=== PATIENT | female | born 2000 | race Caucasian/White ===

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

== ENCOUNTER 2022-10-13 17:01 | Outpatient (CLI) | payer OTHER, SELFPAY ==
--- NOTE | ~2022-10-13 | XR_ITS ---
XR chest 2V DATE: 10/13/2022 17:22 INDICATION: Chest pain TECHNIQUE: PA and lateral views COMPARISON: None FINDINGS: Normal heart size. No hilar or mediastinal enlargement. No pulmonary infiltrate or consolid ation, pleural effusion or pulmonary vascular congestion or pneumothorax. Included skeletal structures appear normal. IMPRESSION: Negative Reviewed, dictated and finalized at location A. HEALTH REGISTERED NURSE IMPRESSION: Negative
[2022-10-13 17:28] LABS: Hematocrit 39.7 % (37.0-47.0); Hemoglobin 13.4 g/dL (12.0-15.0); Mean Corpuscular HGB Conc 33.8 g/dl (32-36); Mean Corpuscular Hemoglobin 29.8 pg (26-34); Mean Corpuscular Volume 88.2 fl (80-100); Mean Platelet Volume 8.2 fl (7.4-10.4); Platelet Count Result 355 k/mm3 (150-375); Red Cell Distribution Width 12.5 % (11.5-14.5)
[2022-10-13 17:42] LABS: Alanine Aminotransferase 17 U/L (6-35); Albumin Level 4.6 g/dL (3.5-5.1); Alkaline Phosphatase 45 U/L (38-126); Anion Gap 7 mmol/L (8-16); Aspartate Amino Transferase 24 U/L (14-36); Bilirubin,Total 0.7 mg/dL (0.2-1.3); Blood Urea Nitrogen 11 mg/dL (7-17); Calcium 8.9 mg/dL (8.4-10.2); Carbon Dioxide 23 mmol/L (22-30); Chloride 110 mmol/L (98-107); Estimated Glomerular Filt Rate > 60; Glucose 83 mg/dL (65-110); Potassium 3.7 mmol/L (3.4-5.0); Sodium 140 mmol/L (137-145)
[2022-10-13 18:48] LABS: Folic Acid 10.8 ng/mL (2.76->20)
[2022-10-13 19:25] LABS: Vitamin D 25 Hydroxy 45.3 ng/mL
[2022-10-13 19:38] LABS: Thyroid Stimulating Hormone Reflex 0.972 uIU/mL (0.465-4.68)
== END 2022-10-13 17:02 | disposition home or self-care (01) ==
LOC: ANHLAB 17:04
PROVIDERS: PCP Family Medicine; Visit Provider Physician Assistant Medical
DX: D64.9 Anemia, unspecified (principal); F41.9 Anxiety disorder, unspecified; E78.2 Mixed hyperlipidemia; R53.83 Other fatigue; E55.9 Vitamin D deficiency, unspecified; R07.9 Chest pain, unspecified
CPT/HCPCS: 36415; 71046; 80053; 82306; 82607; 82746; 84443; 85027

== ENCOUNTER 2022-10-14 13:38 | Outpatient (CLI) | payer OTHER, SELFPAY ==
--- NOTE | 2022-10-14 13:49 | ECG_ITS ---
Measurements Intervals [place] Rate: 91 P: 69 MO: 151 QRS: 85 QRSD: 80 T: 50 QT: 340 QTc: 420 Interpretive Statements SINUS RHYTHM NO PREVIOUS ECG AVAILABLE FOR COMPARISON Electronically Signed On 10-14-2022 18:03:09 [employer] by Sophie Lopez M.D.
== END 2022-10-14 13:39 | disposition home or self-care (01) ==
LOC: ANHCARD 13:40
PROVIDERS: PCP Family Medicine; Visit Provider Physician Assistant Medical
DX: R07.9 Chest pain, unspecified (principal)
CPT/HCPCS: 93005

== ENCOUNTER 2023-01-25 17:14 | Outpatient (CLI) | payer OTHER, SELFPAY ==
--- NOTE | ~2023-01-25 | XR_ITS ---
EXAMINATION: XR lumbar spine bending only INDICATION: Low back pain TECHNIQUE: Lateral views of the lumbar spine in flexion and extension are noted. COMPARISON: None available FINDINGS: Bone alignment is normal. There is no fracture. No hypermobility is present with flexion or extension. The vertebral body heights and intervertebral disc spaces are maintained. IMPRESSION: 1. No acute osseous abnormality. Reviewed, dictated and finalized at location L.
[2023-01-25 18:23] LABS: Basophils Absolute Auto 0.1 K/mm3 (0.0-0.1); Basophils Percent Auto 1.5 % (0.2-1.2); Hematocrit 41.4 % (37.0-47.0); Hemoglobin 13.7 g/dL (12.0-15.0); Immature Granulocyte Absolute 0.02 K/mm3 (0.00-0.031); Immature Granulocyte Percent A 0.3 % (0-0.5); Lymphocytes Absolute Auto 2.94 K/mm3 (0.9-3.2); Lymphocytes Percent Auto 37.2 % (18.3-44.2); Mean Corpuscular HGB Conc 33.1 g/dl (32-36); Mean Corpuscular Hemoglobin 29.8 pg (26-34); Mean Platelet Volume 8.6 fl (7.4-10.4); Monocytes Absolute Auto 0.6 K/mm3 (0.1-0.6); Monocytes Percent Auto 7.1 % (2.6-8.5); Neutrophils Absolute Auto 4.3 K/mm3 (1.3-6.7); Neutrophils Percent Auto 53.9 % (45.5-73.1); Platelet Count Result 297 k/mm3 (150-375); Red Cell Distribution Width 12.3 % (11.5-14.5); White Blood Count 7.9 K/mm3 (4.5-10.0)
[2023-01-25 18:33] LABS: Alanine Aminotransferase 16 U/L (6-35); Albumin Level 4.7 g/dL (3.5-5.1); Alkaline Phosphatase 52 U/L (38-126); Anion Gap 8 mmol/L (8-16); Aspartate Amino Transferase 25 U/L (14-36); Bilirubin,Total 0.8 mg/dL (0.2-1.3); Blood Urea Nitrogen 10 mg/dL (7-17); Calcium 9.3 mg/dL (8.4-10.2); Carbon Dioxide 25 mmol/L (22-30); Chloride 104 mmol/L (98-107); Estimated Glomerular Filt Rate > 60; Glucose 89 mg/dL (65-110); Potassium 3.9 mmol/L (3.4-5.0); Sodium 137 mmol/L (137-145)
[2023-01-25 18:35] LABS: Rheumatoid Factor < 8.6 IU/ML (<12)
[2023-01-25 19:12] LABS: Vitamin D 25 Hydroxy 47.4 ng/mL
[2023-01-25 19:15] LABS: Erythrocyte Sedimentation Rate 5 mm/hr (0-20)
[2023-01-28 12:04] LABS: Anti Cyclic Citrullinated Pept <16 Units (<20)
== END 2023-01-25 17:15 | disposition home or self-care (01) ==
LOC: ANHLAB 17:15
PROVIDERS: PCP Family Medicine; Visit Provider Physician Assistant Medical
DX: M54.50 Low back pain, unspecified (principal); M25.50 Pain in unspecified joint; E53.8 Deficiency of other specified B group vitamins; E55.9 Vitamin D deficiency, unspecified
CPT/HCPCS: 36415; 72120; 80053; 82306; 82607; 85025; 85652; 86038; 86200; 86430

== ENCOUNTER 2023-02-23 12:50 | Outpatient (CLI) | payer OTHER, SELFPAY | END 2023-02-23 12:51 | disposition home or self-care (01) | LOC: ANHLAB 12:53 | PROVIDERS: PCP Family Medicine; Visit Provider Physician Assistant Medical | DX: E53.8 Deficiency of other specified B group vitamins (principal) | CPT/HCPCS: 36415; 82607 ==

== ENCOUNTER 2023-10-12 14:00 | Outpatient (RCR) | payer OTHER, SELFPAY ==
--- NOTE | 2023-09-14 14:06 | OPREHPOC ---
Outpatient Therapy Plan of Care This is a Multidisciplinary Plan of Care that may contain components documented by all disciplines (PT, OT, and ST.) PT Problem 1 PT Problem #1 Knowledge Deficit PT Goal 1 Goal Pt to be IND with issued Target Visit 8 PT Problem 2 PT Problem #2 Pain PT Goal 1 Goal Pt to report back pain no greater than 3/10 in the last week Target Visit 8 PT Goal 2 Goal Pt to report 75% improvement in overall symptoms. Target Visit 8 PT Problem 3 PT Problem #3 Pain PT Goal 1 Goal Pt to be able to stand for a full day of work without any pain. Target Visit 4 PT Problem 4 PT Problem #4 Impaired Range of Motion PT Goal 1 Goal Pt to demonstrate equal pelvis alignment at re- eval. Target Visit 4
--- NOTE | 2023-09-14 14:06 | PTOPEVAL1 ---
Assessment and note entered by Cortez Szymanski, PT, DPT Evaluation Information Assessment Status Evaluation Diagnosis back pain with radiculopathy Onset 6 month Subjective Information Pt reports lower back pain with L leg pain. She states her back pain she really only feels at night when she is laying down, she states her L leg bothers her more throughout the day. The back/ leg pain has been going on for about 6 months. 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 Reported Pain Level Pain Score 0: Self Report Assessment PT Clinical Summary Bonita presents to therapy today for her initial evaluation with a diagnosis of low back pain. Today she demonstrates pelvic asymmetry in supine. She declines any tenderness to palpation and has a negative slump test. She has hypermobility in her spine and BLE. Skilled therapy services are indicated to improve core/pelvis strength and stability, to limit pain, and to return to PLOF without limitations. Plan of Care Interventions Electrical Stimulation,Gait Training,Hot Pack/Cold Pack,Manual Therapy,Neuro Re-education,Patient/ Caregiver Educati,Therapeutic Activities, Therapeutic Exercise PT Services Indicated Yes Treatment Frequency and 1x/wk for 4 visits Duration These treatments will address the objective and functional deficits as defined above. The patient will be advanced safely and appropriately in order for the patient to progress towards his/her prior level of function. Additional exercises will be introduced and as well as a comprehensive home exercise program upon discharge, if needed, ?to ensure carryover of functional gains achieved in the clinic. This treatment plan has been reviewed and agreement upon by the patient.
--- NOTE | 2023-10-12 14:52 | PTOPDC ---
Assessment and note entered by Cortez Szymanski, PT, DPT Evaluation Information Assessment Status Discharge Diagnosis back pain with radiculopathy Onset 6 month Subjective Information Pt states she was doing really well for about a week or so. She states she is having a bit of pain today. She states she does think it is from the way she sleeps. Reported Pain Level Pain Score 5: Self Report Assessment PT Clinical Summary Bonita presents to therapy today for her progress report following 4 visits of skilled thereat to treat her low back pain. Overall she has progressed well with therapy, her standing and sitting tolerance have both improved. She states she slept wrong last night and was a bit sore. Pain decreased after HEP was performed. Pt states she does not need to continue with therapy, she feels she has the tools to treat herself on days she has pain. She will be discharged at this time.
== END 2023-10-12 16:04 | disposition home or self-care (01) ==
LOC: ANHGOSHPT 14:00
PROVIDERS: PCP Internal Medicine; Visit Provider Clinical Nurse Specialist
DX: M54.50 Low back pain, unspecified (principal); M79.605 Pain in left leg
CPT/HCPCS: 97014; 97110; 97161; 97530; G0283

== ENCOUNTER 2023-10-31 12:24 | Emergency (ER) | payer BC, SELFPAY ==
[2023-10-31 12:31] VITALS: BP 113/79; PULSE 91; RESP 20; TEMP 36.8; O2SAT 99
--- NOTE | 2023-10-31 13:42 | ED.GENADULT ---
HPI - General Adult General Chief complaint: Back Pain/Injury Stated complaint: SCIATICA Source: patient and family Mode of arrival: ambulatory Limitations: no limitations History of Present Illness HPI narrative: Patient presents for evaluation left sciatic nerve pain. She has been attending PT to treat this but has had limited improvement in her symptoms. Her pain was previously managed with NSAIDs but in the last week they have not been helping. She rates her pain 7/10 severity, shooting down the posterior aspect of the left lower extremity. No saddle anesthesia. Pain seems to subside when she gets up walking. Related Data Home Medications Medication Instructions Recorded Confirmed norgestimate 0.25 mg-ethinyl 1 tablet PO DAILY 05/20/22 10/31/23 estradiol 35 mcg tablet (Sprintec (28)) Allergies Allergy/AdvReac Type Severity Reaction Status Date / Time No Known Allergies Allergy Verified 10/31/23 12:38 Review of Systems Review of Systems: CONSTITUTIONAL: Denies fever, chills, or sweats. EYES: Denies visual changes, redness, or discharge. ENT: Denies rhinorrhea, congestion, sore throat, or otalgia. CARDIOVASCULAR: Denies chest pain, palpitations, or edema. RESPIRATORY: Denies cough or dyspnea. GASTROINTESTINAL: Denies abdominal pain, nausea, vomiting, or diarrhea. GENITOURINARY: Denies dysuria or hematuria. SKIN: Denies rash or itching. MUSCULOSKELETAL: Reports left lower back pain with radiation down posterior aspect of LLE NEUROLOGIC: Denies headache, numbness, dizziness, or weakness. PSYCHIATRIC: Denies anxiety or depression. [facility] Past Medical History Medical History Psoriasis Sciatica, left side Thrombosed external hemorrhoid Surgical History Surgical History No pertinent past surgical history Family History Family History Other Breast cancer CAD (coronary artery disease) Carcinoma of colon Social History Social History Smoking status: Never smoker Second hand tobacco smoke exposure: No Alcohol intake: current Alcohol use details: socially on the weekends. Substance use: unknown Substance use type: does not use Lack of Transportation: No Lack of Food: Never True Current Housing: I Have Housing Concerned About Future Housing: No Difficulty Paying Gas/Electric Bills: No Difficulty Paying for Meds: No Currently Unemployed: No Education: High School Diploma/GED Difficulty w/ Childcare or Family Care: No Living arrangements: dorm student housing Occupation/Education: student Gender identity (if verbalized by the patient): Female Spiritual care concerns: No Agree to blood products: Yes Exam Narrative: GENERAL: Well-appearing, well-nourished, and in no acute distress. HEAD: Normocephalic, atraumatic. EYES: PERRLA and EOMI. ENT: Nares clear, no rhinorrhea or epistaxis. Mucous membranes moist. Oropharynx without tonsillar hypertrophy exudate or other lesions. Bilateral TMs pearly sanchez nonbulging NECK: Supple. No adenopathy or masses. No carotid bruits or JVD CHEST: Clear to auscultation. No respiratory distress. No wheezes rales or rhonchi HEART: Regular rate and rhythm. No murmur heard. Normal peripheral pulses. ABDOMEN: Soft, nontender, nondistended, normal active bowel sounds. EXTREMITIES: Normal range of motion. No edema. Positive straight leg raise on the left BACK: No tenderness in midline or paraspinous muscles of lumbar spine. There is tenderness over the left SI joint SKIN: Warm, dry, no rash. NEURO: No focal deficits. Alert and oriented x3. PSYCH: Normal mood and affect. Course Course Emergency Course: This is a 23-year-old female that presents for evaluation of left-si
== END 2023-10-31 13:48 | disposition home or self-care (01) ==
PROVIDERS: Emergency Provider Nurse Practitioner; PCP Clinical Nurse Specialist
DX: M54.32 Sciatica, left side (principal)
CPT/HCPCS: 99213; G0463

== ENCOUNTER → 2023-12-07 12:47 | Outpatient (CLI) | payer BC, SELFPAY ==
--- NOTE | ~2023-12-07 | MR_ITS ---
MRI of the lumbar spine Clinical History: Sciatica Technique: Axial T2-weighted images, and sagittal T1-weighted, T2-weighted, and T2 fat-sat images wer e acquired. Findings: There is no fracture or subluxation of the lumbar spine. Vertebral bodies maintain normal h eight and alignment. Intervertebral discs throughout the lumbar spine maintain normal signal position. No disc bulge or he rniation seen. No spinal canal stenosis or neural foraminal narrowing identified in the lumbar spine. There is a T1 hypointense, T2 heterogeneous mixed isointense and hyperintense lesion extensively invo lving the left iliac bone adjacent to the SI joint, measuring up to approximately 7.0 x 3.7 cm in tra nsverse dimensions. There is probable cortical destruction in these regions, with soft tissue extensi on both lateral to the left iliac bone and posteriorly. There are multiple additional, much smaller o sseous lesions which are predominantly T2 hyperintense and T1 hypointense, for example in S2 just rig ht of midline (series 5 image 39), at the left sacral alae (series 5 image 44, sagittal T2 fat-sat im ages 15), with several more amorphous lesions in the right iliac bone (series 5 images 40, 43). Sever al additional smaller lesions are also present in the left sacrum. Impression: 7.0 x 3.7 cm heterogeneous mass centered at the left iliac bone adjacent to the SI joint, with extrao sseous soft tissue extension, as detailed above. Multiple additional smaller intramedullary osseous l esions in the sacrum and right iliac bone, as detailed above. Findings are highly suspicious for meta static disease. Additional malignancy/metastatic workup advised. The dominant lesion would be amenabl e to percutaneous biopsy for tissue sampling, as indicated. Findings were discussed with Kesha Villareal's medical records custodian at the time of this reading. Reviewed, dictated and finalized at location M. [facility] Impression: 7.0 x 3.7 cm heterogeneous mass centered at the left iliac bone adjacent to the SI joint, with extraosseous soft tissue extension, as detailed above. Multiple additional smaller intramedullary osseous lesions in the sacrum and right danny c bone, as detailed above. Findings are highly suspicious for metastatic diseas e. Additional malignancy/metastatic workup advised. The dominant lesion would b e amenable to percutaneous biopsy for tissue sampling, as indicated. Findings were discussed with Kesha Villareal's medical records custodian at the time of t his reading.
== END ==
PROVIDERS: PCP Clinical Nurse Specialist; Visit Provider Clinical Nurse Specialist
DX: M54.32 Sciatica, left side (principal)
CPT/HCPCS: 72148

== ENCOUNTER 2023-12-09 12:32 | Outpatient (CLI) | payer BC, SELFPAY ==
[2023-12-09 18:50] LABS: Basophils Absolute Auto 0.1 K/mm3 (0.0-0.1); Basophils Percent Auto 0.7 % (0.2-1.2); Eosinophils Percent Auto 0.1 % (0-4.4); Hematocrit 39.4 % (37.0-47.0); Hemoglobin 12.5 g/dL (12.0-15.0); Immature Granulocyte Absolute 0.02 K/mm3 (0.00-0.031); Immature Granulocyte Percent A 0.3 % (0-0.5); Lymphocytes Percent Auto 28.1 % (18.3-44.2); Mean Corpuscular HGB Conc 31.7 g/dl (32-36); Mean Corpuscular Hemoglobin 28.1 pg (26-34); Mean Corpuscular Volume 88.5 fl (80-100); Mean Platelet Volume 8.1 fl (7.4-10.4); Monocytes Absolute Auto 0.3 K/mm3 (0.1-0.6); Monocytes Percent Auto 4.7 % (2.6-8.5); Neutrophils Absolute Auto 4.5 K/mm3 (1.3-6.7); Neutrophils Percent Auto 66.1 % (45.5-73.1); Platelet Count Result 439 k/mm3 (150-375); Red Blood Count 4.45 M/mm3 (4.2-5.4); Red Cell Distribution Width 12.6 % (11.5-14.5); White Blood Count 6.8 K/mm3 (4.5-10.0)
[2023-12-09 19:28] LABS: Erythrocyte Sedimentation Rate 21 mm/hr (0-20)
[2023-12-09 19:48] LABS: Alanine Aminotransferase 12 U/L (6-35); Alkaline Phosphatase 74 U/L (38-126); Anion Gap 6 mmol/L (8-16); Aspartate Amino Transferase 28 U/L (14-36); Bilirubin,Total 0.4 mg/dL (0.2-1.3); Blood Urea Nitrogen 10 mg/dL (7-17); CRP 1.6 mg/dL (<1.0); Calcium 9.4 mg/dL (8.4-10.2); Carbon Dioxide 27 mmol/L (22-30); Chloride 105 mmol/L (98-107); Estimated Glomerular Filt Rate > 60; Glucose 92 mg/dL (65-110); Potassium 4.2 mmol/L (3.4-5.0); Sodium 138 mmol/L (137-145)
== END 2023-12-09 12:33 | disposition home or self-care (01) ==
LOC: ANHGOSHLAB 12:34
PROVIDERS: PCP Clinical Nurse Specialist; Visit Provider Clinical Nurse Specialist
DX: R19.09 Other intra-abdominal and pelvic swelling, mass and lump (principal)
CPT/HCPCS: 36415; 80053; 82607; 85025; 85652; 86140

== ENCOUNTER 2024-02-16 11:47 | Outpatient (CLI) | payer BC, SELFPAY ==
[2024-02-16 12:09] LABS: Hematocrit 24.9 % (37.0-47.0); Hemoglobin 8.1 g/dL (12.0-15.0); Mean Corpuscular HGB Conc 32.5 g/dl (32-36); Mean Corpuscular Hemoglobin 28.4 pg (26-34); Mean Corpuscular Volume 87.4 fl (80-100); Platelet Count Result 138 k/mm3 (150-375); Red Blood Count 2.85 M/mm3 (4.2-5.4); Red Cell Distribution Width 14.6 % (11.5-14.5)
[2024-02-16 13:24] LABS: White Blood Count 0.6 K/mm3 (4.5-10.0)
[2024-02-16 13:26] LABS: Anisocytosis 1+; Band Neutrophils Percent 1 % (0-6); Hypochromasia 1+; Neutrophils Absolute Manual 0.06 K/mm3 (1.7-7.2); Neutrophils Percent Manual 9 % (46-73); Platelet Estimate Adequate (Adequate); Schistocytes Rare; Total Cells Counted 75
[2024-02-16 13:27] LABS: Basophils Absolute Manual 0.06 K/mm3 (0.0-0.1); Basophils Percent Manual 10 % (0-1); Lymphocytes Absolute Manual 0.25 K/mm3 (1.1-4.5); Lymphocytes Percent Manual 43 % (18-44); Monocytes Absolute Manual 0.07 K/mm3 (0.1-0.90); Monocytes Percent Manual 12 % (3-9)
== END 2024-02-16 11:48 | disposition home or self-care (01) ==
PROVIDERS: PCP Clinical Nurse Specialist
DX: C41.4 Malignant neoplasm of pelvic bones, sacrum and coccyx (principal)
CPT/HCPCS: 36415; 85025